=== PATIENT | female | born 1960 | race Caucasian/White ===

== ENCOUNTER 2019-10-31 11:22 | Emergency (ER) | payer SELFPAY ==
[2019-10-31] MEDS ORDERED: OXYMETAZOLINE HCL 100 SPRAYS BOTTLE NAS STA (12:22)
--- NOTE | 2019-10-31 12:22 | ED Physician Documentation ---
History of Present Illness - Stated complaint Stated Complaint: NOSE BLEED - Chief complaint Chief Complaint: Heent - Additonal information Additional information: This is a 59-year-old female presents with a nosebleed. Patient began having nosebleed last night, she try to hold direct pressure but she was holding pressure on the bony part of her upper nose, so was not initially effective. She got it to stop but this morning it restarted. Eventually she stuck a paper towel into her nose and this stopped, but now she is worried that when she removes the cloth that the bleeding is going to restart. She denies bleeding elsewhere, she infrequently gets nosebleeds, she thinks this 1 is related to the fact that they using wood-burning stove and she has had some irritation causing her to blow her nose and sneeze more frequently. 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 HEENT: Tonsil/Adenoidectomy - Present Medications Home Medications: Ambulatory Orders Medication Instructions Recorded Confirmed No Known Home Medications 10/31/19 10/31/19 - Allergies Allergies/Adverse Reactions: Allergies Allergy/AdvReac Type Severity Reaction Status Date / Time meperidine [From Demerol] Allergy Unknown Verified 10/31/19 11:42 - Social History Does the pt smoke?: No Smoking Status: Never smoker Does the pt have substance abuse?: No PD ED PE NORMAL - Vitals Vital signs reviewed: Yes - General General: Alert and oriented X 3 - HEENT HEENT: Atraumatic, PERRL, Other (Paper towels removed to reveal dry blood in the nostril, but no active bleeding.Pharynx has A small clot but no active bleeding) - Cardiac Cardiac: RRR (.) - Respiratory Respiratory: No respiratory distress - Derm Derm: No rash - Neuro Neuro: Alert and oriented X 3 - Psych Psych: Normal mood, Normal affect Results - Vitals Vitals: Vital Signs - 24 hr 10/31/19 10/31/19 11:37 12:05 Temperature 36.8 C Heart Rate 77 Respiratory 17 Rate Blood Pressure 151/115 H 190/113 H O2 Saturation 97 Oxygen O2 Source Room air PD MEDICAL DECISION MAKING - ED course ED course: On arrival patient is not having active bleeding. When the paper towel is removed from her nose she is hemostatic. She was observed for 20 minutes without any direct pressure or packing in her nose and she continues to have no bleeding. I see no signs of petechiae, she has no history of clotting disorder or blood thinner use, or bleeding elsewhere. No lightheadedness or signs of anemia. I discussed care for nosebleeds, she was given Afrin with instructions on its use, she was also given a pair of nose clamps. I discussed return precautions, and PCP follow-up if she is having any recurrent bleeds. Patient agrees with plan was discharged home. Departure - Departure Disposition: Home, Self Care Clinical Impression: Epistaxis Condition: Good Instructions: ED Nosebleed Follow-Up: Haleigh Beasley ND [Primary Care Provider] - As Needed Comments: You were seen today for nosebleed. I am glad this has stopped but if it recurs use 2 sprays of Afrin in your nostril and then put the nose clamps on and hold direct pressure for 10 to 15 minutes. Use a clock or a watch to time this. If you having continued bleeding after 15 minutes of direct pressure, Or if you have any other concerning symptoms such as passing out, lightheadedness or bleeding elsewhere, return to the emergency department. Do not use the Afrin for more than 3 days in a row.
[2019-10-31 13:26] VITALS: BP 173/104
== END 2019-10-31 13:23 | disposition home or self-care (01) ==
LOC: ED 11:22
DX: R04.0 Epistaxis (principal)
CPT/HCPCS: 99282; 99284; A9270

== ENCOUNTER 2022-04-12 19:23 | Emergency (ER) | payer SELFPAY ==
[2022-04-12 19:47] LABS: BILIRUBIN,URINE NEGATIVE (NEGATIVE); GLUCOSE, URINE (UA) NEGATIVE (NEGATIVE); KETONES,URINE (UA) NEGATIVE (NEGATIVE); LEUKOCYTE ESTERASE, URINE NEGATIVE (NEGATIVE); NITRITE,URINE NEGATIVE (NEGATIVE); OCCULT BLOOD,URINE LARGE (NEGATIVE); PH,URINE 6.5 PH (5.0-7.5); PROTEIN,URINE NEGATIVE (NEGATIVE); UROBILINOGEN,URINE 0.2 (NORMAL) E.U./dL (NORMAL)
[2022-04-12 19:48] LABS: CLARITY,URINE CLEAR (CLEAR)
[2022-04-12] MEDS ORDERED: SODIUM CHLORIDE 0.9% 1,000 ML IV STA (19:48)
--- NOTE | 2022-04-12 19:50 | ED Physician Documentation ---
PD HPI ABD PAIN - Stated complaint Stated Complaint: BACK/SIDE PX,VOMITING - Chief complaint Chief Complaint: Abd Pain - History obtained from History obtained from: Patient - Additional information Additional information: Patient is a 62-year-old female with a history of fibromyalgia presenting for evaluation of left flank pain. Pain started yesterday evening at 9 PM. She reports it feeling as if somebody had punched her in the left flank area. It did not radiate at that time. It went away on its own. Around 1:00 this afternoon, she felt pain again in the left side of her abdomenWhich again resolved on its own. At this evening she again was feeling pain to the left side and had 1 episode of nonbloody, nonbilious emesis and has presented to the emergency department. She has noted feeling urinary urgency, denies hematuria or dysuria.She denies a history of kidney stones. She has had her gallbladder removed. Nothing makes the pain better or worse. She reports having difficulty finding a position of comfort earlier today but the pain has improved. She denies fever, chills, chest pain or difficulty breathing.Her initial blood pressure was noted to be very elevated. Patient reports having discomfort with obtaining blood pressure readings at the upper extremities due to her fibromyalgia pain. However she also has been told in the past she has high blood pressures but is not currently on any medications. Review of Systems Constitutional: denies: Fever Nose: denies: Congestion Cardiac: denies: Chest pain / pressure, Palpitations Respiratory: denies: Dyspnea, Cough GI: reports: Abdominal Pain, Nausea, Vomiting. denies: Diarrhea : reports: Frequency. 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 HEENT: Tonsil/Adenoidectomy - Present Medications Home Medications: Ambulatory Orders Medication Instructions Recorded Confirmed Ondansetron Odt [Zofran] 4 mg TL Q6H PRN #10 tablet 04/12/22 Oxycodone HCl/Acetaminophen 1 each PO Q6H PRN #14 tablet 04/12/22 [Percocet 5-325 mg Tablet] Tamsulosin [Flomax] 0.4 mg PO DAILY #14 cap 04/12/22 amLODIPine [Norvasc] 5 mg PO DAILY #30 tablet 04/12/22 - Allergies Allergies/Adverse Reactions: Allergies Allergy/AdvReac Type Severity Reaction Status Date / Time meperidine [From Demerol] Allergy Unknown Verified 04/12/22 19:35 - Social History Does the pt smoke?: No Smoking Status: Never smoker Does the pt have substance abuse?: No PD ED PE NORMAL - General General: Alert and oriented X 3, No acute distress, Well developed/nourished - HEENT HEENT: Atraumatic, Moist mucous membranes - Neck Neck: Supple, no meningeal sign, No bony TTP - Cardiac Cardiac: RRR, No murmur, Strong equal pulses - Respiratory Respiratory: No respiratory distress, Clear bilaterally - Abdomen Abdomen: Normal bowel sounds, Soft, Non tender, Non distended - Back Back: No CVA TTP - Derm Derm: No rash - Extremities Extremities: No edema - Neuro Neuro: Normal speech - Psych Psych: Normal mood Results - Vitals Vitals: Vital Signs - 24 hr 04/12/22 04/12/22 19:26 21:17 Temperature 36.5 C 36.9 C Heart Rate 86 80 Respiratory 26 H 16 Rate Blood Pressure 200/111 H 188/105 H O2 Saturation 99 96 Oxygen O2 Source Room air - Labs Labs: Laboratory Tests 04/12/22 04/12/22 04/12/22 19:38 19:53 19:53 WBC 9.4 RBC 4.84 Hgb 13.9 Hct 41.0 MCV 84.7 MCH 28.7 MCHC 33.9 RDW 13.2 Plt Count 228 MPV 9.5 Neut # (Auto) 6.5 Lymph # (Auto) 2.0 [place] # (Auto) 0.7 Eos # (Auto) 0.1 Baso # (Auto) 0.0 Absolute Nucleated RBC 0.00 Nucleated RBC % 0.0 Sodium 143 Potassium 3.3 L Chloride 104 Carbon Dioxide 26 Anion Gap 13.0 BUN 19 Creatinine 0.8 Estimated GFR (MDRD) 72 L Glucose 117 H Calcium 9.4 Total Bilirubin 0.8 AST 29 ALT 38 Alkaline Phosphatase 90 Total Protein 7.7 Albumin 3.9 Globulin 3.8 Albumin/Globulin Ratio 1.0 Lipase 35 Urine Color YELLOW Urine Clarity CLEAR Urine pH 6.5 Ur Specific [place] 1.015 Urine Protein NEGATIVE Urine Glucose (UA) NEGATIVE Urine Ketones NEGATIVE Urine Occult Blood LARGE H Urine Nitrite NEGATIVE Urine Bilirubin NEGATIVE Urine Urobilinogen 0.2 (NORMAL) Ur Leukocyte Esterase NEGATIVE Urine RBC TNTC H Urine WBC 0-3 Ur Squamous Epith Cells RARE Squamous Urine Bacteria Rare Ur Microscopic Review INDICATED Urine Culture Comments NOT INDICATED PD MEDICAL DECISION MAKING - ED course Complexity details: reviewed results, re-evaluated patient, d/w patient ED course: Patient is a 62-year-old female with left flank pain radiating to her abdomen. History suggestive of kidney stone. Patient has elevated blood pressure but appears to be asymptomatic. Other vitals are reassuring. Labs are without significant acute findings. CT scan does demonstrate a stone that is passed into the bladder. Patient has not required pain medication or nausea medication.Mirella management of stone. Patient's blood pressure remains elevated. She remains without symptoms. We will start patient on low-dose antihypertensive. She is aware of need for follow-up with her primary care doctor.Denies chest pain or difficulty breathing. No signs of hypertensive urgency or emergency. In accordance with the [facility] clinical policy from December 2012, this patient has asymptomatic elevated blood pressure without evidence of acute target organ injury. There are also no signs of acute stroke, cardiac ischemia, pulmonary edema, encephalopathy or acute congestive heart failure. Therefore the patient will be referred to their primary care provider for follow-up of their asymptomatic hypertension. Departure - Departure Disposition: 01 Home, Self Care Clinical Impression: Ureteral stone Hypertension Qualifiers: Hypertension type: primary hypertension Qualified Code(s): I10 - Essential (primary) hypertension Condition: Stable Instructions: ED Hypertension New Begin Tx, ED Stone Renal W Colic Follow-Up: Haleigh Beasley ND [Primary Care Provider] - Prescriptions: Tamsulosin [Flomax] 0.4 mg PO DAILY #14 cap amLODIPine [Norvasc] 5 mg PO DAILY #30 tablet Oxycodone HCl/Acetaminophen [Percocet 5-325 mg Tablet] 1 each PO Q6H PRN #14 tablet PRN Reason: pain Ondansetron Odt [Zofran] 4 mg TL Q6H PRN #10 tablet PRN Reason: Nausea / Vomiting Comments: Patricia - You were evaluated for pain to your flank and abdomen. You were found to have a kidney stone that has made its way from the kidney into the bladder.You will be given medication to help you pass the stone including pain medication and nausea medication. I have sent prescriptions to the [facility] in [place]. Your blood pressure was also noted to be very elevated. You likely need to be on medication to help with your blood pressure. I have sent a prescription For blood pressure medication to the right in [place]. Please start taking this tomorrow morning. Please also schedule close follow-up with your primary care doctor to have your blood pressure rechecked and to discuss your medication regiment. Please return to the emergency department if you develop any worsening symptoms such as fever, pain, chest pain, difficulty breathing, vomiting or have other concerns. I am prescribing a short course of narcotic pain medication for you. These are potentially dangerous and addictive medications that should be used carefully. These medications may constipate you. Take an [id number] stool softener (docusate) twice daily with plenty of water while taking these medications. If you go 24 hours without a bowel movement, take [id number]-[id number] miralax, per package instructions. Do not drink or drive while taking these medications. If you received narcotic or sedating medications while in the emergency department, do not drive for 24 hours. Store this medication in a safe, secure place and out of reach of children. It is a violation of federal law to give or sell this medication to another person or to use in a manner other than prescribed. The ED will not refill narcotic prescriptions, including prescriptions lost or stolen. To dispose of unwanted medications: 1. [facility] [address] in [place] has a medication drop box. They accept prescription medications (in pill form) Wednesday through Wednesday 9:00 a.m. to 5:00 p.m. 2. The [facility] [place] [employer] accepts prescription medications (in pill form only) for disposal year round. Call for more information. 3. Contact the [facility] for the next [facility] sponsored prescription drug collection event. , [phone], or [phone]; Note that many narcotic pain relievers also contain Tylenol/acetaminophen. Please ensure that your total dose of acetaminophen from all sources does not exceed 3 g (3000 mg) per day. CT SCAN: IMPRESSION: 1. Small stone in the urinary bladder measuring 0.3 cm which is presumably passed from the left ureter. There is mild left hydronephrosis. 2. Several small nonobstructing kidney stones bilaterally.
[2022-04-12 19:55] LABS: BACTERIA,URINE Rare /HPF (None Seen); RBC,URINE TNTC /HPF (0-5); SQUAMOUS EPITHELIAL CELL,UR RARE Squamous (<= Few); WBC,URINE 0-3 /HPF (0-5)
[2022-04-12 19:58] LABS: BASOPHILS % (AUTO) 0.4 %; EOSINOPHILS # (AUTO) 0.1 10^3/uL (0.0-0.7); EOSINOPHILS % (AUTO) 1.2 %; HGB - HEMOGLOBIN 13.9 g/dL (12.0-16.0); LYMPHOCYTES % (AUTO) 21.4 %; MEAN CORPUSCULAR HEMOGLOBIN 28.7 pg (27.0-31.0); MEAN CORPUSCULAR HGB CONC 33.9 g/dL (32.0-36.0); MEAN CORPUSCULAR VOLUME 84.7 fL (81.0-99.0); MEAN PLATELET VOLUME 9.5 fL (7.9-10.8); MONOCYTES # (AUTO) 0.7 10^3/uL (0.0-1.0); MONOCYTES % (AUTO) 7.9 %; NEUTROPHILS # (AUTO) 6.5 10^3/uL (1.5-6.6); NEUTROPHILS % (AUTO) 68.8 %; PLT - PLATELET COUNT 228 10^3/uL (130-450); RED BLOOD COUNT 4.84 10^6/uL (4.20-5.40); RED CELL DISTRIBUTION WIDTH 13.2 % (12.0-15.0); WHITE BLOOD COUNT 9.4 x10^3/uL (4.8-10.8)
[2022-04-12 20:12] LABS: ALBUMIN 3.9 g/dL (3.2-5.5); BILIRUBIN,TOTAL 0.8 mg/dL (0.2-1.0); CALCIUM 9.4 mg/dL (8.5-10.3); CREATININE 0.8 mg/dL (0.4-1.0); POTASSIUM 3.3 mmol/L (3.5-5.0); TOTAL PROTEIN 7.7 g/dL (6.7-8.2)
--- NOTE | 2022-04-12 20:38 | CT Report ---
PROCEDURE: Abdomen/Pelvis WO INDICATIONS: L flank pain radiating to abd TECHNIQUE: Noncontrast 5 mm thick sections acquired from the diaphragms to the symphysis. 5 mm coronal and sagi ttal reformats were then performed. For radiation dose reduction, the following was used: automated exposure control, adjustment of mA and/or kV according to patient size. COMPARISON: None. FINDINGS: Image quality: Excellent. ABDOMEN: Lung bases: Lung bases are clear. Heart size is normal. Solid organs: Liver and spleen are normal in size. Gallbladder is absent. Pancreas is normal in co ntours. No adrenal nodules. Kidneys are normal in size. Mild left hydronephrosis. Stone which has passed into the urinary bladder measuring 0.3 cm near the left UVJ. There are 4 nonobstructing right kidney stones, largest measurin g 0.6 cm. There are 3 nonobstructing left kidney stones, largest measuring 0.3 cm. Peritoneum and bowel: Unenhanced bowel loops demonstrate normal wall thickness and caliber. Normal appendix. No free fluid or air. Nodes and vessels: No retroperitoneal or mesenteric adenopathy by size criteria. Aorta and inferior vena cava are normal in caliber. Miscellaneous: No ventral hernias. PELVIS: Genitourinary: Bladder wall thickness is normal. Small stone the urinary bladder as described above. Miscellaneous: No inguinal hernias or adenopathy. Bones: No suspicious bony lesions. DDD. No vertebral body compression fractures. IMPRESSION: 1. Small stone in the urinary bladder measuring 0.3 cm which is presumably passed from the left urete r. There is mild left hydronephrosis. 2. Several small nonobstructing kidney stones bilaterally. Reviewed by: Francisco Javier Chairez MD on 04/12/2022 8:37 PM PDT Approved by: Francisco Javier Chairez MD on 04/12/2022 8:37 PM PDT Station ID: [id number]
[2022-04-12] MEDS ORDERED: ONDANSETRON ODT 4 MG Prepack 2 TL PRN (20:48)
[2022-04-12] MEDS ORDERED: oxyCODONE/ACET 5/325 Prepack 4 PO STA (20:48)
[2022-04-12] MEDS ORDERED: TAMSULOSIN 0.4 MG CAPSULE PO STA (20:49)
[2022-04-12 21:18] VITALS: BP 188/105
== END 2022-04-12 21:27 | disposition home or self-care (01) ==
LOC: ED 19:23
DX: N20.1 Calculus of ureter (principal); I10 Essential (primary) hypertension
CPT/HCPCS: 36415; 74176; 80053; 81001; 83690; 85025; 99284; A9270; 81003; 87086

== ENCOUNTER 2023-05-26 01:58 | Outpatient (CLI) | payer MEDICARE | END 2023-05-26 01:59 | disposition critical access hospital (66) | LOC: EMS 01:58 | DX: M54.50 Low back pain, unspecified (principal) | CPT/HCPCS: A0425; A0429 ==

== ENCOUNTER 2023-05-26 02:25 | Emergency (ER) | payer MEDICARE ==
[2023-05-26 02:47] LABS: BILIRUBIN,URINE NEGATIVE (NEGATIVE); GLUCOSE, URINE (UA) NEGATIVE (NEGATIVE); KETONES,URINE (UA) NEGATIVE (NEGATIVE); LEUKOCYTE ESTERASE, URINE TRACE (NEGATIVE); NITRITE,URINE NEGATIVE (NEGATIVE); OCCULT BLOOD,URINE LARGE (NEGATIVE); PH,URINE 6.5 PH (5.0-7.5); PROTEIN,URINE 30 mg/dL (NEGATIVE); UROBILINOGEN,URINE 0.2 (NORMAL) E.U./dL (NORMAL)
[2023-05-26 02:55] LABS: CLARITY,URINE SL. CLOUDY (CLEAR)
[2023-05-26 02:56] LABS: BACTERIA,URINE Few /HPF (None Seen); CRYSTALS,URINE 0-2 Calcium Oxalate /LPF; RBC,URINE TNTC /HPF (0-5); SQUAMOUS EPITHELIAL CELL,UR FEW Squamous (<= Few)
--- NOTE | 2023-05-26 05:40 | ED Physician Documentation ---
PD HPI ABD PAIN - Stated complaint Stated Complaint: R SIDE/BACK PX - Chief complaint Chief Complaint: Abd Pain - History obtained from History obtained from: Patient - Additional information Additional information: The patient comes to the emergency department chief complaint of sudden onset of right flank pain. She has a history of kidney stones and states this feels the same. Symptoms just started today. Patient states that the pain has been intermittent but when it comes on, it is quite strong. She denies nausea or vomiting. No dysuria. No gross blood in her urine. No bowel changes. No respiratory symptoms. 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 HEENT: Tonsil/Adenoidectomy - Present Medications Home Medications: Ambulatory Orders Medication Instructions Recorded Confirmed Ondansetron Odt [Zofran] 4 mg TL Q6H PRN #10 tablet 04/12/22 Oxycodone HCl/Acetaminophen 1 each PO Q6H PRN #14 tablet 04/12/22 [Percocet 5-325 mg Tablet] Tamsulosin [Flomax] 0.4 mg PO DAILY #14 cap 04/12/22 amLODIPine [Norvasc] 5 mg PO DAILY #30 tablet 04/12/22 HYDROcod/ACETAM 5/325 [[place] 5/325] 1 - 2 tablet PO Q6H PRN #14 tablet 05/26/23 - Allergies Allergies/Adverse Reactions: Allergies Allergy/AdvReac Type Severity Reaction Status Date / Time meperidine [From Demerol] Allergy Unknown Verified 05/26/23 02:36 - Social History Does the pt smoke?: No Smoking Status: Never smoker Does the pt have substance abuse?: No PD ED PE NORMAL - Vitals Vital signs reviewed: Yes - General General: Alert and oriented X 3, No acute distress, Well developed/nourished - HEENT HEENT: Atraumatic, PERRL, EOMI, Moist mucous membranes - Neck Neck: Supple, no meningeal sign - Cardiac Cardiac: RRR, No murmur - Respiratory Respiratory: No respiratory distress, Clear bilaterally - Abdomen Abdomen: Soft, Non tender, Non distended - Derm Derm: Warm and dry - Extremities Extremities: No deformity - Neuro Neuro: Alert and oriented X 3 - Psych Psych: Normal mood, Normal affect Results - Vitals Vitals: Oxygen O2 Source Room air - Labs Labs: Microbiology 05/26/23 02:43 Urine Culture - Preliminary Urine,Clean Catch CULTURE IN PROGRESS. RESULTS TO FOLLOW. Laboratory Tests 05/26/23 02:43 Urine Color YELLOW Urine Clarity SL. CLOUDY Urine pH 6.5 Ur Specific [place] 1.020 Urine Protein 30 H Urine Glucose (UA) NEGATIVE Urine Ketones NEGATIVE Urine Occult Blood LARGE H Urine Nitrite NEGATIVE Urine Bilirubin NEGATIVE Urine Urobilinogen 0.2 (NORMAL) Ur Leukocyte Esterase TRACE H Urine RBC TNTC H Urine WBC 4-5 Ur Squamous Epith Cells FEW Squamous Urine Crystals 0-2 Calcium Oxalate Urine Bacteria Few Ur Microscopic Review INDICATED Urine Culture Comments INDICATED - Rads (name of study) CT abdomen and pelvis no contrast Relevant Findings:: Final report received, See rad report (4 mm stone right ureter) PD Medical Decision Making - ED course Complexity details: reviewed results, re-evaluated patient, considered differential, d/w patient ED course: The patient was worked up with urinalysis, which showed blood, and CT abdomen and pelvis, which showed a right ureteral stone. We discussed that this will most likely pass on its own, given time, and have discussed symptomatic management at home as well as the need for follow-up. We have discussed the usual indications for return. Departure - Departure Disposition: 01 Home, Self Care Clinical Impression: Kidney stone on right side Condition: Stable Instructions: ED Stone Renal W Colic Prescriptions: HYDROcod/ACETAM 5/325 [[place] 5/325] 1 - 2 tablet PO Q6H PRN #14 tablet PRN Reason: Pain Comments: Your urinalysis shows some blood and your CT scan shows a stone that is coming down your right ureter. The stone is 4 mm in diameter so is a passable size. However, the passage of a kidney stone can be very uncomfortable and as such, we have sent some pain medication to the [facility] pharmacy in [place] for you. Please be sure you drink plenty of fluids to help wash the stone out. Please schedule an appointment with your primary care physician for follow-up. Discharge Date/Time: 05/26/23 05:55
[2023-05-26 06:00] VITALS: BP 154/86
--- NOTE | 2023-05-26 14:10 | CT Report ---
PROCEDURE: ABDOMEN/PELVIS WO INDICATIONS: R flank pain TECHNIQUE: A CT scan of the abdomen and pelvis was performed without the use of intravenous contrast. Images we re recorded and evaluated at appropriate window settings. Reformats: coronal and sagittal. For radiat ion dose reduction, the following was used: automated exposure control, adjustment of mA and/or kV ac cording to patient size. COMPARISON: CT abdomen and pelvis without. FINDINGS: Image quality: Excellent. Lung bases and heart: Bibasilar scars and atelectasis. Small hiatal hernia. Liver: No solid mass. Gallbladder and biliary tree: Gallbladder is surgically absent. No biliary dilation. Spleen: No splenomegaly. Pancreas: No pancreatic ductal dilation. Adrenals: No adrenal nodule. Kidneys and ureters: There is a 4 mm stone in the possible right ureter just on the right UPJ, causin g mild right hydronephrosis. There are bilateral renal calculi. 4-5 stenosis in the right kidney lev uring up to [address] density 371 Hounsfield units. Forced with the left kidney measuring 1-4 mm. No left hydronephrosis. No renal cystic lesion which requires follow up. No solid mass. Bowel and peritoneum: No bowel distension. No pathologic free fluid. Lymph nodes: No central or retroperitoneal adenopathy. Vessels: No infrarenal aortic aneurysm. PELVIS Reproductive organs: Unremarkable. Bladder: No wall thickness, accounting for underdistention. Pelvic lymph nodes: No pelvic adenopathy by size criteria. Bones: No aggressive osseous abnormality. Moderate degenerative disc and facet disease at L5 L5 and L 5-S1. Other: No significant ventral or inguinal hernia. IMPRESSION: 1. A 4 mm obstructive right proximal ureteral stone is present, causing mild right hydronephrosis. 2. Bilateral nonobstructive renal calculi. Findings are concordant with preliminary interpretation provided by [facility]. Reviewed by: Emiliano Robert MD on 05/26/2023 2:08 PM PDT Approved by: Emiliano Robert MD on 05/26/2023 2:08 PM PDT Station ID: [id number]
== END 2023-05-26 05:55 | disposition home or self-care (01) ==
LOC: EDUNIT# → ED 02:25
DX: N20.0 Calculus of kidney (principal); Z87.442 Personal history of urinary calculi
CPT/HCPCS: 81001; 81003; 87086; 99283; 99284

== ENCOUNTER 2024-01-05 08:00 | Outpatient (CLI) | payer MEDICARE | END 2024-01-05 23:59 | disposition home or self-care (01) | LOC: LAB.S 08:00 | PROVIDERS: ATTEND Registered Nurse | DX: R31.9 Hematuria, unspecified (principal); R30.0 Dysuria; R10.9 Unspecified abdominal pain | CPT/HCPCS: 87077; 87086 ==

== ENCOUNTER 2024-01-21 11:26 | Outpatient (CLI) | payer MEDICARE | END 2024-01-21 11:27 | disposition home or self-care (01) | LOC: LAB.S 11:26 | PROVIDERS: ATTEND Registered Nurse | DX: R31.9 Hematuria, unspecified (principal); R30.0 Dysuria; R10.9 Unspecified abdominal pain | CPT/HCPCS: 87086 ==

== ENCOUNTER 2024-01-24 11:49 | Outpatient (CLI) | payer MEDICARE ==
[2024-01-24 12:08] LABS: BILIRUBIN,URINE NEGATIVE (NEGATIVE); GLUCOSE, URINE (UA) NEGATIVE (NEGATIVE); KETONES,URINE (UA) NEGATIVE (NEGATIVE); LEUKOCYTE ESTERASE, URINE NEGATIVE (NEGATIVE); NITRITE,URINE NEGATIVE (NEGATIVE); OCCULT BLOOD,URINE NEGATIVE (NEGATIVE); PROTEIN,URINE NEGATIVE (NEGATIVE); UROBILINOGEN,URINE 0.2 (NORMAL) E.U./dL (NORMAL)
[2024-01-24 12:11] LABS: CLARITY,URINE CLEAR (CLEAR)
[2024-01-24 12:14] LABS: BACTERIA,URINE Rare /HPF (None Seen); RBC,URINE 0-5 /HPF (0-5); SQUAMOUS EPITHELIAL CELL,UR MOD Squamous (<= Few); WBC,URINE 0-3 /HPF (0-5)
== END 2024-01-24 11:50 | disposition home or self-care (01) ==
LOC: LAB 11:49
PROVIDERS: ATTEND Nurse Practitioner Family
DX: R82.90 Unspecified abnormal findings in urine (principal)
CPT/HCPCS: 81001; 87086

== ENCOUNTER 2024-01-24 12:13 | Outpatient (CLI) | payer MEDICARE ==
--- NOTE | 2024-01-24 20:42 | XRAY Report ---
PROCEDURE: Knee 3V RT INDICATIONS: RIGHT KNEE PAIN TECHNIQUE: 3 views of the knee was obtained. COMPARISON: None FINDINGS: Bones: No fractures or dislocations. No suspicious bony lesions. Moderate medial compartment and pa tellofemoral joint space narrowing with small joint effusion Soft tissues: Small knee joint effusion. No suspicious soft tissue calcifications or masses. IMPRESSION: Mild to moderate arthritic changes Reviewed by: Sonny Hernández MD on 01/24/2024 7:41 PM AKST Approved by: Sonny Hernández MD on 01/24/2024 7:41 PM AKST Station ID: [id number]
== END 2024-01-24 12:14 | disposition home or self-care (01) ==
LOC: DI 12:13
PROVIDERS: ATTEND Nurse Practitioner Family
DX: M17.11 Unilateral primary osteoarthritis, right knee (principal)

== ENCOUNTER 2024-01-26 08:35 | Outpatient (CLI) | payer MEDICARE ==
[2024-01-26 15:06] LABS: BASOPHILS % (AUTO) 0.7 %; EOSINOPHILS # (AUTO) 0.1 10^3/uL (0.0-0.7); EOSINOPHILS % (AUTO) 2.6 %; HCT - HEMATOCRIT 42.5 % (37.0-47.0); HGB - HEMOGLOBIN 13.8 g/dL (12.0-16.0); LYMPHOCYTES # (AUTO) 2.7 10^3/uL (1.5-3.5); LYMPHOCYTES % (AUTO) 48.3 %; MEAN CORPUSCULAR HGB CONC 32.5 g/dL (32.0-36.0); MEAN CORPUSCULAR VOLUME 89.3 fL (81.0-99.0); MONOCYTES # (AUTO) 0.5 10^3/uL (0.0-1.0); MONOCYTES % (AUTO) 8.7 %; NEUTROPHILS # (AUTO) 2.2 10^3/uL (1.5-6.6); NEUTROPHILS % (AUTO) 39.5 %; PLT - PLATELET COUNT 229 10^3/uL (130-450); RED BLOOD COUNT 4.76 10^6/uL (4.20-5.40); RED CELL DISTRIBUTION WIDTH 13.4 % (12.0-15.0); WHITE BLOOD COUNT 5.5 x10^3/uL (4.8-10.8)
[2024-01-26 16:54] LABS: ALBUMIN 3.9 g/dL (3.2-5.5); ALBUMIN/GLOBULIN RATIO 1.1 (1.0-2.2); ALKALINE PHOSPHATASE 79 IU/L (42-121); ALT ALANINE AMINOTRANSFERASE 30 IU/L (10-60); AST ASPARTATE AMINOTRANSFERASE 25 IU/L (10-42); BILIRUBIN,TOTAL 0.7 mg/dL (0.2-1.0); BUN - BLOOD UREA NITROGEN 16 mg/dL (6-20); CALCIUM 9.5 mg/dL (8.5-10.3); CARBON DIOXIDE - CO2 26 mmol/L (21-32); CHLORIDE 108 mmol/L (101-111); CHOL/HDL RATIO 3.1 (<4.4); CHOLESTEROL 193 mg/dL; CREATININE 0.6 mg/dL (0.6-1.3); GFR - MDRD 100 (>89); GLUCOSE 97 mg/dL (74-104); HDL CHOLESTEROL 63 mg/dL; LDL CHOLESTEROL,CALCULATED 111 mg/dL; LDL/HDL RATIO 1.8 (<4.4); POTASSIUM 3.6 mmol/L (3.5-4.5); SODIUM 141 mmol/L (135-145); TOTAL PROTEIN 7.3 g/dL (6.4-8.9); TRIGLYCERIDES 95 mg/dL (48-352); VLDL CHOLESTEROL 19 mg/dL
[2024-01-26 17:01] LABS: THYROID STIMULATING HORMONE 1.51 uIU/mL (0.34-5.60)
== END 2024-01-26 08:36 | disposition home or self-care (01) ==
LOC: LAB.S 08:35
PROVIDERS: ATTEND Nurse Practitioner Family
DX: I10 Essential (primary) hypertension (principal); E78.5 Hyperlipidemia, unspecified
CPT/HCPCS: 36415; 80053; 80061; 83721; 84443; 85025

== ENCOUNTER 2024-02-07 14:00 | Outpatient (CLI) | payer MEDICARE ==
[2024-02-07 14:54] LABS: BILIRUBIN,URINE NEGATIVE (NEGATIVE); GLUCOSE, URINE (UA) NEGATIVE (NEGATIVE); KETONES,URINE (UA) NEGATIVE (NEGATIVE); LEUKOCYTE ESTERASE, URINE NEGATIVE (NEGATIVE); NITRITE,URINE NEGATIVE (NEGATIVE); OCCULT BLOOD,URINE TRACE-INTA (NEGATIVE); PH,URINE 6.5 PH (5.0-7.5); PROTEIN,URINE NEGATIVE (NEGATIVE); UROBILINOGEN,URINE 0.2 (NORMAL) E.U./dL (NORMAL)
[2024-02-07 14:56] LABS: CLARITY,URINE CLEAR (CLEAR)
[2024-02-07 15:11] LABS: BACTERIA,URINE None Seen /HPF (None Seen); SQUAMOUS EPITHELIAL CELL,UR RARE Squamous (<= Few); WBC,URINE 0-3 /HPF (0-5)
== END 2024-02-07 14:01 | disposition home or self-care (01) ==
LOC: LAB 14:00
PROVIDERS: ATTEND Nurse Practitioner Family
DX: R31.9 Hematuria, unspecified (principal)
CPT/HCPCS: 81001; 87086

== ENCOUNTER 2024-05-26 10:49 | Outpatient (CLI) | payer MEDICARE ==
--- NOTE | 2024-05-26 15:59 | CT Report ---
PROCEDURE: Abdomen/Pelvis WO INDICATIONS: ASYMPTOMATIC MICROSCOPIE HEMATURIA TECHNIQUE: A CT scan of the abdomen and pelvis was performed without the use of intravenous contrast. Images we re recorded and evaluated at appropriate window settings. Reformats: coronal and sagittal. For radiat ion dose reduction, the following was used: automated exposure control, adjustment of mA and/or kV ac cording to patient size. COMPARISON: CT abdomen pelvis 05/18/2023. FINDINGS: Image quality: Diagnostic. Lower chest: Unremarkable. Liver: No contour-deforming mass. Gallbladder: Removed. Biliary tree: No intrahepatic or extrahepatic dilation, accounting for age. Spleen: No splenomegaly. Pancreas: No pancreatic ductal dilation. Adrenals: No adrenal nodule. Kidneys and ureters: No hydronephrosis. No contour-deforming mass. 6 renal calcifications are present within the right kidney. Have increased in number since prior exam. The largest remains in the anter ior midpole measuring 1 cm Hounsfield units 966. The left kidney demonstrates 2 punctate calcificatio ns decreased in number compared to prior exam. Stomach, bowel and peritoneum: No gastric or small bowel dilation. No abnormal wall thickening. No pa thologic free fluid. Lymph nodes: No central or retroperitoneal adenopathy. Vessels: No infrarenal aortic aneurysm. Reproductive organs: Unremarkable. Bladder: Bladder wall thickness is normal, accounting for underdistention. No calcified bladder stone s. Pelvic lymph nodes: No adenopathy by size criteria. Bones: No aggressive osseous abnormality. Multilevel degenerative changes within the lumbar spine. Other: No significant ventral or inguinal hernia. IMPRESSION: Bilateral renal calculi, nonobstructing with increased number identified on the right, decreased on t he left. No bladder calculi. Reviewed by: Johana Kinney MD on 05/26/2024 3:57 PM PDT Approved by: Johana Kinney MD on 05/26/2024 3:57 PM PDT Station ID: [id number]
== END 2024-05-26 10:50 | disposition home or self-care (01) ==
LOC: DI 10:49
PROVIDERS: ATTEND Physician Assistant Medical
DX: N20.0 Calculus of kidney (principal)

== ENCOUNTER 2024-07-13 07:48 | Outpatient (CLI) | payer MEDICARE ==
[2024-07-13 08:24] LABS: CALCIUM 9.6 mg/dL (8.5-10.3); CREATININE 0.8 mg/dL (0.6-1.3); MAGNESIUM 1.6 mg/dL (1.7-2.3)
[2024-07-13 08:40] LABS: THYROID STIMULATING HORMONE 3.45 uIU/mL (0.34-5.60)
== END 2024-07-13 07:49 | disposition home or self-care (01) ==
LOC: LAB 07:48
PROVIDERS: ATTEND Nurse Practitioner
DX: I49.3 Ventricular premature depolarization (principal)
CPT/HCPCS: 36415; 80048; 83735; 84443

== ENCOUNTER 2024-08-13 10:49 | Outpatient (CLI) | payer MEDICARE ==
--- NOTE | 2024-08-14 05:50 | Ultrasound Report ---
PROCEDURE: Pelvic w/Transvaginal INDICATIONS: POSTMENOPAUSAL BLEEDING TECHNIQUE: Real-time scanning was performed of the pelvic organs, with image documentation. Additional endovagi nal scanning was necessary due to incomplete visualization of the adnexal and endometrial structures by transabdominal scanning. COMPARISON: CT abdomen and pelvis without contrast 05/26/2024 FINDINGS: Uterus: Uterus is anteverted and normal in size at 7.3 x 4.2 x 4.9 cm. The myometrium is heterogene ous. The endometrium measures 14 mm in combined thickness. There is a mid anterior uterine body sub serosal 2.4 x 1.7 x 1.9 cm fibroid. Ovaries: The right ovary measures 2.1 x 1.9 x 1.7 cm, with a calculated ovarian volume of 3.5 cc. Th e right ovary has a normal sonographic appearance. The left ovary is surgically absent. Other: No pa thologic free abdominal or pelvic fluid. IMPRESSION: 1.Endometrial hyperplasia up to 14 mm. Gynecological consultation recommended for further evaluation. 2.Mid anterior uterine body 2.4 cm subserosal fibroid. Reviewed by: Mason Wyman MD on 08/14/2024 5:49 AM PDT Approved by: Mason Wyman MD on 08/14/2024 5:49 AM PDT Station ID: [id number]
== END 2024-08-13 10:50 | disposition home or self-care (01) ==
LOC: DI 10:49
PROVIDERS: ATTEND Nurse Practitioner
DX: N85.00 Endometrial hyperplasia, unspecified (principal); D25.2 Subserosal leiomyoma of uterus